=== PATIENT | female | born 1980 | race Hispanic/Latino ===

== ENCOUNTER 2022-09-11 10:52 | Day surgery (SDC) | payer SELFPAY ==
[2022-09-08 09:44] LABS: BASOPHILS % (AUTO) 0.3 % (0.0-5.0); EOSINOPHILS % (AUTO) 2.8 % (0.0-8.0); HEMATOCRIT 40.9 % (36-48); LYMPHOCYTES % (AUTO) 34.3 % (21.0-51.0); MEAN CORPUSCULAR HGB CONC 34.2 g/dL (32.0-36.0); MEAN CORPUSCULAR VOLUME 93.6 fL (79-99); MONOCYTES % (AUTO) 8.1 % (3.0-13.0); NEUTROPHILS % (AUTO) 54.4 % (40.0-77.0); PLATELET COUNT (AUTO) 210 K/uL (130-400); RED BLOOD CELL COUNT(AUTO) 4.37 MIL/uL (4.00-5.50); RED CELL DISTRIBUTION WIDTH 12.1 % (11.0-15.5); WHITE BLOOD COUNT (AUTO) 6.8 K/uL (4.8-10.8)
[2022-09-08 10:46] VITALS: BP 118/75
[2022-09-11] VITALS (13 sets, daily range): BP systolic 121–130; BP diastolic 70–79
[~2022-09-11] VITALS: Ht 156.2 cm; Wt 67.1 kg
[~2022-09-11 10:52] MED LIST: CALDOLOR 800MG+NS 250ML 250 ML IV SCH; CEFAZOLIN SODIUM 1 GM VIAL IVPB SCH; STRONG IODINE SOLN 14ML BOTTLE ONE
[2022-09-11] MEDS ORDERED: LACTATED RINGERS 1000ML 1,000 ML IV ONE (11:08)
[2022-09-11] MEDS ORDERED: PROPOFOL 10 MG/ML 20ML VIAL IV ONE (12:06)
[2022-09-11] MEDS ORDERED: FENTANYL CITRATE PF 50 MCG/1 ML 2ML VIAL ONE ×2 (12:06→13:36)
[2022-09-11] MEDS ORDERED: MIDAZOLAM HCL 1 MG/ML 2ML VIAL ONE (12:06)
[2022-09-11] MEDS ORDERED: ONDANSETRON 4MG INJ ONE (12:06)
[2022-09-11] MEDS ORDERED: ROCURONIUM 10MG/1ML SYR 10 MG/ML ML ONE (12:06)
[2022-09-11] MEDS ORDERED: MEPERIDINE-PF 25 MG/ML SYG ONE (13:36)
[2022-09-11] MEDS ORDERED: CEFAZOLIN SODIUM 2 GM VIAL IVPB ONE (13:45)
[2022-09-11] MEDS ORDERED: GLYCOPYRROLATE 1 MG/5 ML SYRINGE ONE (14:08)
[2022-09-11] MEDS ORDERED: NEOSTIGMINE 5MG/5ML SYR IV ONE (14:08)
== END 2022-09-11 16:24 | disposition home or self-care (01) ==
LOC: DAH 10:52
PROVIDERS: ATTEND Obstetrics & Gynecology
DX: D06.7 Carcinoma in situ of other parts of cervix (principal); Z20.822 Contact with and (suspected) exposure to COVID-19; N72 Inflammatory disease of cervix uteri; F41.9 Anxiety disorder, unspecified; E78.00 Pure hypercholesterolemia, unspecified; I10 Essential (primary) hypertension; Z82.49 Family history of ischemic heart disease and other diseases of the circulatory system; Z83.42 Family history of familial hypercholesterolemia; Z83.3 Family history of diabetes mellitus; Z80.51 Family history of malignant neoplasm of kidney; Z72.89 Other problems related to lifestyle; N88.8 Other specified noninflammatory disorders of cervix uteri; Z98.891 History of uterine scar from previous surgery
CPT/HCPCS: 86900 ×2; 87426; 84703; 85025; 86850 ×2; 86901 ×2; 36415 ×2; 57520; A4663; A4351; J7120; J3010 ×2; J0690 ×2; J3490; J2710; J2250; J2704; J2405; J2175; J1741; A4215; A4223; A4222; A4221; A4510; A4600